=== PATIENT | female | born 1995 | race American Indian/Alaskan Native ===

== ENCOUNTER 2017-08-17 12:03 | Emergency (ER) | payer OTHER ==
[~2017-08-17] VITALS: Ht 167.6 cm; Wt 77.1 kg
[2017-08-17] MEDS ORDERED: QUET400T PO (12:26)
[2017-08-17] MEDS ORDERED: GABA800T2 PO (12:26)
[2017-08-17] MEDS ORDERED: LEVE750T4 PO (12:26)
[2017-08-17] MEDS ORDERED: FLUO20CA36 PO (12:26)
[2017-08-17] MEDS ORDERED: LEVETIRACETAM IV 500 MG in IV DEXTROSE 5% 100 ML IV ONE (12:45)
[2017-08-17] MEDS ORDERED: LORAZEPAM 2 MG/1 ML VIAL IV ONE ×2 (12:45→13:45)
[2017-08-17] MEDS ORDERED: LEVETIRACETAM 250 MG TABLET PO ONE (12:45)
[2017-08-17] MEDS ORDERED: LORAZEPAM 2 MG/1 ML VIAL ONE ×2 (12:48→13:42)
[2017-08-17] MEDS ORDERED: LEVETIRACETAM 250 MG TABLET ONE (12:51)
--- NOTE | 2017-08-17 13:00 | NUR ---
"Can you have the doctor write me some Xanax?" per patient's verbalization, MD notified
[2017-08-17 13:56] VITALS: BP 118/75
--- NOTE | 2017-08-17 13:57 | NUR ---
Patient discharged to home in stable conditon. Written and verbal after care instructions given. Patient verbalizes understanding of instructions.
== END 2017-08-17 13:58 | disposition home or self-care (01) ==
LOC: ER 12:06
DX: G40.909 Epilepsy, unspecified, not intractable, without status epilepticus (principal); Z90.89 Acquired absence of other organs; Z88.0 Allergy status to penicillin; Z79.899 Other long term (current) drug therapy
CPT/HCPCS: 96365; 96374; 96375; 99284; A4663; J1953; J2060 ×2; J7060